=== PATIENT | male | born 1975 | race Caucasian/White ===

== ENCOUNTER 2023-11-06 09:07 | Outpatient (CLI) | payer OTHER, SELFPAY | END 2023-11-06 09:08 | disposition home or self-care (01) | PROVIDERS: PCP Emergency Medicine; Visit Provider Emergency Medicine | DX: E04.1 Nontoxic single thyroid nodule (principal); R79.89 Other specified abnormal findings of blood chemistry; E78.5 Hyperlipidemia, unspecified | CPT/HCPCS: 84270; 84402; 84403; 84439; 84443; 84480 ==

== ENCOUNTER 2023-11-11 12:04 | Outpatient (CLI) | payer OTHER, SELFPAY ==
--- NOTE | 2023-11-11 12:15 | CRLHL7_ITS ---
For Patients: As a result of the Cures Act, medical imaging exams and procedure reports are released immediately into your electronic medical record. You may view this report before your referring provider. If you have questions, please contact your health care provider. INDICATION: Thyroid nodule. Findings : A thyroid ultrasound shows normal size, contour, and echogenicity the right thyroid lobe which measures 5.1 cm in length. No right thyroid nodules identified. Normal appearance of the isthmus. 8 x 8 x 4 mm solid nodule in the midportion of the left thyroid lobe. The left thyroid lobe is otherwise unremarkable and measures 4.8 cm in length. Impression : 1. 8 mm left thyroid nodule. TI-RADS category 3. ACR TI-RADS [email or web address] TR1: Benign No FNA TR2: Not Suspicious No FNA TR3: Mildly Suspicious FNA if greater than or equal to 2.5 cm Follow if greater than or equal to 1.5 cm TR4: Moderately Suspicious FNA if greater than or equal to 1.5 cm Follow if greater than or equal to 1 cm TR5: Highly Suspicious FNA if greater than or equal to 1 cm Follow if greater than or equal to 0.5 cm Dictated by Hilario White MD @ 11/12/2023 10:45:17 AM (Electronically Signed)
== END 2023-11-11 12:05 | disposition home or self-care (01) ==
LOC: US 12:05
PROVIDERS: PCP Emergency Medicine; Visit Provider Emergency Medicine
DX: E04.1 Nontoxic single thyroid nodule (principal)
CPT/HCPCS: 76536